=== PATIENT | female | born 1975 | race Caucasian/White ===

== ENCOUNTER → 2018-12-27 | Outpatient (CLI) | payer OTHER ==
--- NOTE | 2019-01-03 12:02 | MM ---
Reason for exam: screening (asymptomatic). Last mammogram was performed 1 year ago. History: Silicone gel implants, 2010. Physical Findings: A clinical breast exam by your physician is recommended on an annual basis and results should be correlated with mammographic findings. MG 3D Screen Mammo Imp/Cad Bilateral CC, MLO, and ID view(s) were taken. Prior study comparison: January 01, 2018, mammogram, performed at [place]. The breast tissue is extremely dense which could obscure a lesion on mammography. Benign calcifications in the right breast. No suspicious abnormality. Bilateral prepectoral silicone implants present. ASSESSMENT: Benign, BI-RAD 2 RECOMMENDATION: Routine screening mammogram of both breasts in 1 year.
== END ==
LOC: RADMAMWWP 07:30
PROVIDERS: ATTEND Family Medicine
DX: Z12.31 Encounter for screening mammogram for malignant neoplasm of breast (principal)
CPT/HCPCS: 77063; 77067

== ENCOUNTER → 2019-01-11 | Outpatient (CLI) | payer OTHER ==
[2019-01-11 15:43] LABS: Basophils % (A) 1 %; Eosinophils # (A) 0.1 k/uL (0-0.7); Eosinophils % (A) 3 %; HCT 42.1 % (34.0-46.0); HGB 13.8 gm/dL (11.4-16.0); Lymphocytes # (A) 1.4 k/uL (1.0-4.8); Lymphocytes % (A) 33 %; MCH 32.2 pg (25.0-35.0); MCHC 32.7 g/dL (31.0-37.0); MCV 98.4 fL (80.0-100.0); Mean Platelet Volume 6.5; Monocytes # (A) 0.3 k/uL (0-1.0); Monocytes % (A) 7 %; Neutrophils # (A) 2.3 k/uL (1.3-7.7); Neutrophils % (A) 54 %; Platelet Count 263 k/uL (150-450); RBC 4.28 m/uL (3.80-5.40); RDW 12.7 % (11.5-15.5); WBC 4.2 k/uL (3.8-10.6)
[2019-01-11 17:11] LABS: Erythrocyte Sedimentation Rate 4 mm/hr (0-20)
[2019-01-12 01:26] LABS: Albumin 4.2 g/dL (3.80-4.90); Albumin/Globulin Ratio 1.83 (1.60-3.17); Anion Gap 6.8 mmol/L (4.00-12.00); Calcium 9.1 mg/dL (8.7-10.3); Carbon Dioxide 28.2 mmol/L (21.6-31.8); Globulin 2.3 g/dL (1.6-3.3); Potassium 4.6 mmol/L (3.5-5.5); Total Bilirubin 0.4 mg/dL (0.2-1.2); Total Protein 6.5 g/dL (6.2-8.2)
[2019-01-12 04:07] LABS: EBV-VCA (IgG) >8.0 AI; HIV 1 AB Non-Reactive (Non-Reactive); HIV AB P24 Non-Reactive (Non-Reactive); HIV P24 AG Non-Reactive (Non-Reactive)
[2019-01-12 04:08] LABS: Toxoplasma Antibody (IgG) <3.0 IU/mL (<7.2)
[2019-01-12 04:44] LABS: Herpes simplex IgG II Ab 0.25 (< or = 0.90)
== END ==
LOC: LABWHC1 14:52
PROVIDERS: ATTEND Internal Medicine Infectious Disease
DX: D72.810 Lymphocytopenia (principal)
CPT/HCPCS: 36415; 80053; 85025; 85652; 86644; 86645; 86663; 86664; 86665; 86694; 86695; 86696; 86777; 87390

== ENCOUNTER → 2019-12-28 | Outpatient (CLI) | payer OTHER ==
[2019-12-28 08:49] LABS: HCT 41.9 % (34.0-46.0); HGB 14.1 gm/dL (11.4-16.0); MCHC 33.5 g/dL (31.0-37.0); MCV 98.3 fL (80.0-100.0); Mean Platelet Volume 7.3; Platelet Count 259 k/uL (150-450); RBC 4.27 m/uL (3.80-5.40); RDW 12.6 % (11.5-15.5); WBC 2.9 k/uL (3.8-10.6)
[2019-12-28 16:13] LABS: African American GFR (CKD) 104.7 (60.0-200.0); Albumin 4.4 g/dL (3.80-4.90); Albumin/Globulin Ratio 2.1 (1.60-3.17); Anion Gap 6.3 mmol/L (4.00-12.00); Calcium 8.9 mg/dL (8.7-10.3); Carbon Dioxide 26.7 mmol/L (21.6-31.8); Chol/HDL Ratio 2.4; Globulin 2.1 g/dL (1.6-3.3); LDL Cholesterol,Calculated 101.4 mg/dL (0.0-131.0); Non-African American GFR(CKD) 90.3 (60.0-200.0); Potassium 4.3 mmol/L (3.5-5.5); Total Bilirubin 0.6 mg/dL (0.3-1.2); Total Protein 6.5 g/dL (6.2-8.2); VLDL Calculation 14.6 mg/dL (5.00-40.00)
[2019-12-28 16:23] LABS: Thyroid Peroxidase Antibodies <28.0 U/mL (0.0-60.0)
== END | disposition home or self-care (01) ==
LOC: LABWHC1 08:25
PROVIDERS: ATTEND Internal Medicine Endocrinology, Diabetes & Metabolism
DX: Z13.220 Encounter for screening for lipoid disorders (principal); E03.9 Hypothyroidism, unspecified; E03.8 Other specified hypothyroidism; E55.9 Vitamin D deficiency, unspecified; R53.83 Other fatigue
CPT/HCPCS: 36415; 80053; 80061; 82024; 82306; 82533; 82607; 84146; 84443; 85027; 86376

== ENCOUNTER → 2020-05-17 | Outpatient (CLI) | payer OTHER ==
--- NOTE | 2020-05-21 08:44 | MM ---
Reason for exam: screening (asymptomatic). Last mammogram was performed 1 year and 5 months ago. History: Silicone gel implants, 2010. Physical Findings: A clinical breast exam by your physician is recommended on an annual basis and results should be correlated with mammographic findings. MG 3D Screen Mammo Imp/Cad Bilateral CC, MLO, and ID view(s) were taken. Prior study comparison: December 27, 2018, bilateral MG 3d screen mammo imp/cad. January 01, 2018, mammogram, performed at [place]. The breast tissue is extremely dense which could obscure a lesion on mammography. Bilateral breast prothesis. No significant changes when compared with prior studies. ASSESSMENT: Benign, BI-RAD 2 RECOMMENDATION: Routine screening mammogram of both breasts in 1 year.
== END | disposition home or self-care (01) ==
LOC: RADMAMWWP 13:01
PROVIDERS: ATTEND Family Medicine
DX: Z12.31 Encounter for screening mammogram for malignant neoplasm of breast (principal)
CPT/HCPCS: 77063; 77067

== ENCOUNTER → 2020-09-04 | Outpatient (CLI) | payer OTHER ==
--- NOTE | 2020-09-04 15:08 | USB ---
Reason for exam: clinical finding. History: Silicone gel implants, 2010. Indicated problem(s): lump or thickening in the left breast. Physical Findings: Nurse Summary: Patient complains of left breast lump x 1 month, superficial palpable, subcutaneous cyst (nurse mj). US Breast LT Left complete breast ultrasound includes all four quadrants, the retroareolar region and axilla. Finding demonstrates a 0.8 x 0.6 x 0.2cm oval, cystic, benign lesion at 3 o'clock, a 0.6 x 0.5 x 0.3cm oval, cystic, benign lesion at 11 o'clock and a 1.9 x 0.9 x 0.4cm oval lymph node at the axilla. At the 6 o'clock papable site some prominent folds are noted in the underlying implant. These results were verbally communicated with the patient and result sheet given to the patient on 09/04/20. ASSESSMENT: Benign, BI-RAD 2 RECOMMENDATION: Return to routine screening mammogram schedule for both breasts. Back on schedule for May 2021. Manage on a clinical basis with regard to any suspicious palpable abnormality. Any enlarging area can be rescanned.
== END | disposition home or self-care (01) ==
LOC: RADUSWWP 13:31
PROVIDERS: ATTEND Family Medicine
DX: N63.20 Unspecified lump in the left breast, unspecified quadrant (principal)

== ENCOUNTER → 2022-05-27 | Outpatient (CLI) | payer MEDICARE, OTHER ==
--- NOTE | 2022-05-27 11:41 | MM ---
Reason for Exam: Screening (asymptomatic). Last mammogram was performed 2 year(s) and 0 month(s) ago. Patient History: Menarche at age 13. First Full-Term at age 18. Hysterectomy at age 31. 2010, Implant(s). Risk Values: Soco 5 year model risk: 0.6%. NCI Lifetime model risk: 7.0%. Prior Study Comparison: 01/01/2018 Screening Mammogram, [place]. 12/27/2018 Bilateral Screening Mammogram, [facility]. 05/17/2020 Bilateral Screening Mammogram, [facility]. Tissue Density: The breast tissue is extremely dense which could obscure a lesion on mammography. Findings: Analyzed By CAD. Breast tissue is extremely dense which limits sensitivity of mammography. There is no suspicious group of microcalcifications or new suspicious mass in either breast. Bilateral breast prosthesis. No significant change from prior examination. Overall Assessment: Benign, BI-RAD 2 Management: Screening Mammogram of both breasts in 1 year. A clinical breast exam by your physician is recommended on an annual basis and results should be correlated with mammographic findings. Electronically signed and approved by: Rahul Paul D.O.
== END | disposition home or self-care (01) ==
LOC: RADMAMWWP 07:06
PROVIDERS: ATTEND Obstetrics & Gynecology
DX: Z12.31 Encounter for screening mammogram for malignant neoplasm of breast (principal)
CPT/HCPCS: 77063; 77067

== ENCOUNTER → 2023-02-28 | Outpatient (CLI) | payer OTHER, MEDICARE ==
--- NOTE | 2023-03-01 07:19 | MR ---
EXAMINATION TYPE: MR brain wo/w con DATE OF EXAM: 02/28/2023 COMPARISON: 07/02/2015 HISTORY: MS, hx of brain lesions, dizziness TECHNIQUE: Multiplanar, multisequence images of the brain and brainstem is performed without and with IV contras t, utilizing 5 mL intravenous Gadavist . FINDINGS: On the T1-weighted sagittal images, the midline structures including the craniovertebral junction rel ationships appear normal. The ventricles, basal cisterns and sulci over the convexities are within normal limits and there is n o mass effect or shift of midline structures No abnormal signal intensity is seen throughout the brain parenchyma. Based on diffusion-weighted cris ging, there is no diffusion restriction or acute ischemic event. Following contrast administration, there is no pathological enhancement. The posterior fossa including the brainstem, fourth ventricle and cerebellar pontine angles appear no rmal. Intraorbital contents are normal and symmetric. Visualized paranasal sinuses and mastoid air cells ar e well aerated. IMPRESSION: No significant abnormality seen.
== END | disposition home or self-care (01) ==
LOC: RADMRIMAIN 10:25
PROVIDERS: ATTEND Psychiatry & Neurology Neurology
DX: G43.709 Chronic migraine without aura, not intractable, without status migrainosus (principal); R90.89 Other abnormal findings on diagnostic imaging of central nervous system
CPT/HCPCS: 70553; A9585

== ENCOUNTER → 2023-10-13 | Outpatient (CLI) | payer OTHER, MEDICARE ==
--- NOTE | 2023-10-14 11:56 | MM ---
Reason for Exam: Screening (asymptomatic). Last mammogram was performed 1 year(s) and 5 month(s) ago. Patient History: Menarche at age 13. First Full-Term at age 18. Right ovary removed at age 43. Hysterectomy at age 31. 2009, Implant(s). Risk Values: Soco 5 year model risk: 0.6%. NCI Lifetime model risk: 6.8%. Prior Study Comparison: 12/27/2018 Bilateral Screening Mammogram, [facility]. 05/17/2020 Bilateral Screening Mammogram, [facility]. 05/27/2022 Bilateral MG 3D screen mammo imp/cad., [facility]. Tissue Density: The breast tissue is heterogeneously dense. This may lower the sensitivity of mammography. Findings: Analyzed By CAD. There is no suspicious group of microcalcifications or new suspicious mass in either breast. Bilateral implants are in place. Overall Assessment: Benign, BI-RAD 2 Management: Screening Mammogram of both breasts in 1 year. . Patient should continue monthly self-breast exams. A clinical breast exam by your physician is recommended on an annual basis. This exam should not preclude additional follow-up of suspicious palpable abnormalities. Note on Soco scores and lifetime risk: 1. A Soco score greater than 3% is considered moderate risk. If this is the case, consider specialist referral to assess eligibility for a risk reducing agent. 2. If overall lifetime risk for the development of breast cancer is 20% or higher, the patient may qualify for future screening with alternating mammogram and breast MRI. Electronically signed and approved by: Clayton Santana M.D. Radiologis
== END | disposition home or self-care (01) ==
LOC: RADMAMWWP 06:54
PROVIDERS: ATTEND Family Medicine
DX: Z12.31 Encounter for screening mammogram for malignant neoplasm of breast (principal); Z90.721 Acquired absence of ovaries, unilateral; Z98.82 Breast implant status
CPT/HCPCS: 77063; 77067

== ENCOUNTER → 2024-11-04 | Outpatient (CLI) | payer MEDICARE, OTHER ==
--- NOTE | 2024-11-04 17:56 | MM ---
Reason for Exam: Screening (asymptomatic). Last mammogram was performed 1 year(s) and 1 month(s) ago. Patient History: Menarche at age 13. First Full-Term at age 18. Right ovary removed at age 43. Hysterectomy at age 31. 2010, Implant(s). Risk Values: Soco 5 year model risk: 0.7%. NCI Lifetime model risk: 6.7%. Prior Study Comparison: 05/17/2020 Bilateral Screening Mammogram, [facility]. 05/27/2022 Bilateral MG 3D screen mammo imp/cad., [facility]. 10/13/2023 Bilateral MG 3D screen mammo imp/cad., [facility]. Tissue Density: There are scattered areas of fibroglandular density. Findings: Analyzed By CAD. The pattern is symmetrical. Bilateral breast prostheses are present. Spherical calcifications within the right breast. A few scattered benign-appearing punctate calcifications are present bilaterally no significant interval changes No suspicious groups of microcalcifications, spiculated or lobular masses, architectural distortion or other secondary signs of malignancy are mammographically apparent. Overall Assessment: Benign, BI-RAD 2 Management: Screening Mammogram of both breasts in 1 year. A negative mammogram report should not preclude additional follow up of suspicious palpable abnormalities. Patient should continue monthly self breast exam. A clinical breast exam by your physician is recommended on an annual basis and results should be correlated with mammographic findings. Note on Soco scores and lifetime risk: 1. A Soco score greater than 3% is considered moderate risk. If this is the case, consider specialist referral to assess eligibility for a risk reducing agent. 2. If overall lifetime risk for the development of breast cancer is 20% or higher, the patient may qualify for future screening with alternating mammogram and breast MRI. [facility], , 11/04/2024 5:53 PM. Electronically signed and approved by: Adonay Abdullahi D.O. Radiologis
== END | disposition home or self-care (01) ==
LOC: RADMAMWWP 08:52
PROVIDERS: ATTEND Family Medicine
DX: Z12.31 Encounter for screening mammogram for malignant neoplasm of breast (principal); Z90.721 Acquired absence of ovaries, unilateral; R92.323 Mammographic fibroglandular density, bilateral breasts; Z98.82 Breast implant status
CPT/HCPCS: 77063; 77067

== ENCOUNTER 2024-11-15 09:16 | Day surgery (SDC) | payer OTHER, MEDICARE ==
[2024-11-10 13:18] VITALS: BMI 20.8
[2024-11-15] MEDS: SODIUM CHLORIDE 0.9% 500 ML 500 ML IV ONE (09:50)
[2024-11-15] MEDS ORDERED: LIDOCAINE 1% (10MG/ML) FOR IV START INTRADERMA PRN (09:51)
[2024-11-15] MEDS ORDERED: LACTATED RINGERS 1,000 ML IV SCH (09:51)
[2024-11-15 09:56] VITALS: TEMP 98
[2024-11-15] MEDS ORDERED: LIDOCAINE 1% INJ 10MG/ML (20 ML MDV) ONE (10:50)
[2024-11-15] MEDS ORDERED: PROPOFOL 10 MG/ML 20 ML VIAL IV ONE (10:50)
--- NOTE | 2024-11-15 11:04 | P.PCN ---
Date of Procedure: 11/15/24 Procedure(s) Performed: BRIEF HISTORY: Patient is a 49-year-old pleasant white female scheduled for an elective colonoscopy as a part of screening for colon cancer. PROCEDURE PERFORMED: Colonoscopy. PREOPERATIVE DIAGNOSIS: Screening for colon cancer. IV sedation per Anesthesia. PROCEDURE: After informed consent was obtained, the patient, was brought into the endoscopy unit. IV sedation was administered by Anesthesia under continuous monitoring. Digital rectal examination was normal. Initially the Olympus CF-160 flexible video colonoscope was then inserted in the rectum, gradually advanced into the cecum without any difficulty. Careful examination was performed as the scope was gradually being withdrawn. Ileocecal valve and the appendiceal orifice were visualized and appeared normal. Prep was excellent. Mucosa of the cecum, ascending colon, transverse colon, descending colon, sigmoid colon, and rectum appeared normal. Retroflexion was performed in the rectum and no lesions were seen. The patient tolerated the procedure well. IMPRESSION: Normal-appearing colon from rectum to cecum no evidence of colorectal neoplasia. RECOMMENDATIONS: Findings of this examination were discussed with the patient as well as her family. She was advised to have repeat screening colonoscopy in 10 years..
[2024-11-15 11:30] VITALS: BP 109/75; PULSE 75; RESP 18
== END 2024-11-15 12:06 | disposition home or self-care (01) ==
LOC: ORWHC2ENDO 09:16
PROVIDERS: ATTEND Internal Medicine Gastroenterology
DX: Z12.11 Encounter for screening for malignant neoplasm of colon (principal); F32.A Depression, unspecified; Z88.5 Allergy status to narcotic agent; Z79.899 Other long term (current) drug therapy
CPT/HCPCS: J2003; J2704; G0121